=== PATIENT | female | born 1955 | race Caucasian/White ===

== ENCOUNTER 2017-09-22 14:13 | Emergency (ER) | payer BC ==
[2017-09-22 14:20] VITALS: BP 102/70; PULSE 70; TEMP 98; BMI 18.2
--- NOTE | 2017-09-22 14:28 | PDOC ---
History of Present Illness - General Chief Complaint: Injury Stated Complaint: FALL Time Seen by Provider: 09/22/17 14:28 History Source: Patient Exam Limitations: No Limitations - History of Present Illness Initial Comments: 09/22/17 15:47 62-year-old female who is right hand dominant presents to the emergency department complaining of pain to the right shoulder. Patient states she slipped and fell onto her right shoulder yesterday. Patient states she broke her fall on the outstretched of her right hand but denies head injuries, neck/ back pains, extremity numbness or tingling sensation. Pain is exacerbated on certain movements and alleviated at rest. Occurred: reports: yesterday Past History - Past Medical History Allergies/Adverse Reactions: Allergies Allergy/AdvReac Type Severity Reaction Status Date / Time No Known Allergies Allergy Verified 09/22/17 14:16 Home Medications: Ambulatory Orders NK [No Known Home Medication] 09/22/17 COPD: No - Suicide/Smoking/Psychosocial Hx Smoking History: Never smoked Have you smoked in the past 12 months: No Information on smoking cessation initiated: No Hx Alcohol Use: Yes (daily wine) Drug/Substance Use Hx: No Substance Use Type: None Review of Systems - Review of Systems Able to Perform ROS?: Yes Comments:: 09/22/17 14:58 CONSTITUTIONAL: Absent: fever, chills, diaphoresis, generalized weakness, malaise, loss of appetite HEENT: Absent: rhinorrhea, nasal congestion, throat pain, throat swelling, difficulty swallowing, mouth swelling, ear pain, eye pain, visual Changes CARDIOVASCULAR: Absent: chest pain, loss of consciousness, palpitations, irregular heart rate, peripheral edema RESPIRATORY: Absent: cough, shortness of breath, dyspnea with exertion, orthopnea, wheezing, stridor, hemoptysis GASTROINTESTINAL: Absent: abdominal pain, abdominal distension, nausea, vomiting, diarrhea, constipation, melena, hematochezia GENITOURINARY: Absent: dysuria, frequency, urgency, hesitancy, hematuria, flank pain, genital pain MUSCULOSKELETAL: Absent: myalgia, arthralgia, joint swelling SKIN: Absent: rash, itching, pallor Right shoulder +pain Is the patient limited Indonesian proficient: No *Physical Exam - Vital Signs Last Vital Signs Temp Pulse Resp BP Pulse Ox 98.0 F 70 18 102/70 100 09/22/17 14:18 09/22/17 14:18 09/22/17 14:18 09/22/17 14:18 09/22/17 14:18 - Physical Exam Comments: 09/22/17 14:58 GENERAL: Well developed, well nourished. Awake and alert. No acute distress. HEENT: Normocephalic, atraumatic. PERRLA, EOMI. No conjunctival pallor. Sclera are non- icteric. Moist mucous membranes. Oropharynx is clear. NECK: Supple. Full ROM. No JVD. Carotid pulses 2+ and symmetric, without bruits. No thyromegaly. No lymphadenopathy. CARDIOVASCULAR: Regular rate and rhythm. No murmurs, rubs, or gallops. Distal pulses are 2+ and symmetric. PULMONARY: No evidence of respiratory distress. Lungs clear to auscultation bilaterally. No wheezing, rales or rhonchi. ABDOMINAL: Soft. Non-tender. Non-distended. No rebound or guarding. No organomegaly. Normoactive bowel sounds. MUSCULOSKELETAL +Pain on palp Decreased R.O.M> neg obv deformities Right elbow F.R.O.M. neg pain on palp Neg obv deformities EXTREMITIES: No cyanosis. No clubbing. No edema. No calf tenderness. SKIN: Warm and dry. Normal capillary refill. No rashes. No jaundice. ED Treatment Course - RADIOLOGY Radiograph Interpretation: 09/22/17 14:57 Xray right shoulder: 4v transverse humeral fx *DC/Admit/Observation/Transfer Diagnosis at time of Disposition: Shoulder fracture, right Qualifiers: Encounter type: initial encounter Fracture type: closed Qualified Code(s): S42.91XA - Fracture of right shoulder girdle, part unspecified, initial encounter for closed fracture - Discharge Dispostion Disposition: HOME Condition at time of disposition: Stable Admit: No - Referrals Referrals: Timur Estes MD [Primary Care Provider] - Suhail Bhagat MD [Staff Physician] - - Patient Instructions Printed Discharge Instructions: DI for Shoulder Fracture Additional Instructions: Ice; 20 mins on alternating with 20 mins off for 48 hours while awake. Rest Elevate Follow up with your orthopedic surgeon or the one listed on the discharge form. Return to the ER for severe/persistent/worsening symptoms, extremity numbness/ tingling sensation. - Post Discharge Activity
[2017-09-22] MEDS ORDERED: KETOROLAC TROMETHAMINE 30 MG/1 ML VIAL ONE (15:31)
[2017-09-22] MEDS ORDERED: KETOROLAC TROMETHAMINE 30 MG/1 ML VIAL IM ONE (15:39)
== END 2017-09-22 15:40 | disposition home or self-care (01) ==
LOC: JERFT 14:13
PROC: 3E0233Z Introduction of Anti-inflammatory into Muscle, Percutaneous Approach (ICD-10-PCS; principal; 2017-09-22)
DX: S42.91XA Fracture of right shoulder girdle, part unspecified, initial encounter for closed fracture (principal); S42.294A Other nondisplaced fracture of upper end of right humerus, initial encounter for closed fracture; W01.0XXA Fall on same level from slipping, tripping and stumbling without subsequent striking against object, initial encounter; Y93.89 Activity, other specified; Y92.89 Other specified places as the place of occurrence of the external cause; Y99.8 Other external cause status
CPT/HCPCS: 73030-TC-RT-FY; 99281-25

== ENCOUNTER 2022-07-13 13:47 | Emergency (ER) | payer BC, OTHER ==
[2022-07-13 14:00] VITALS: RESP 18; TEMP 97.4; BMI 15.0
[2022-07-13 18:12] LABS: BASO % 0.6 % (0-2.0); EOS % 0.9 % (0-4.5); HEMATOCRIT 36.9 % (32.4-45.2); HEMOGLOBIN 12.3 GM/dL (10.7-15.3); LYMPH % 21.1 % (8-40); MCH 30.2 pg (25.7-33.7); MCHC 33.3 g/dl (32.0-36.0); MEAN CELL VOLUME 90.7 fl (80-96); MEAN PLT VOLUME 7.5 fl (7.5-11.1); MONO % 5.6 % (3.8-10.2); NEUT % 71.8 % (42.8-82.8); PLATELET COUNT 721 10^3/uL (134-434); RBC 4.07 M/mm3 (3.60-5.2); RDW 13.3 % (11.6-15.6); WHITE BLOOD COUNT 12.2 K/mm3 (4.0-10.0)
[2022-07-13 18:21] LABS: INR 1.02 (0.83-1.09); PROTHROMBIN TIME (PATIENT) 11.7 SEC (9.7-13.0)
[2022-07-13 18:24] LABS: ACTIVATED PTT 28.2 SECONDS (25.2-36.5)
[2022-07-13 18:37] LABS: CHLORIDE 101 mmol/L (98-107); SODIUM 140 mmol/L (136-145)
[2022-07-13 18:39] LABS: CALCIUM 9.2 mg/dL (8.5-10.1)
[2022-07-13 18:40] LABS: ALBUMIN 3.2 g/dl (3.4-5.0); BLOOD UREA NITROGEN 19.8 mg/dL (7-18); CO2 25 mmol/L (21-32); GLUCOSE,RANDOM 76 mg/dL (74-106); MAGNESIUM 2.3 mg/dL (1.8-2.4)
[2022-07-13 18:43] LABS: CREATININE 0.9 mg/dL (0.55-1.3); SGOT/AST 32 U/L (15-37); SGPT/ALT 40 U/L (13-61)
[2022-07-13 18:45] LABS: BILIRUBIN,TOTAL 0.3 mg/dL (0.2-1)
[2022-07-13 18:46] LABS: ALK PHOS 70 U/L (45-117)
[2022-07-13 18:49] LABS: ANION GAP 14 MMOL/L (8-16)
[2022-07-13] MEDS ORDERED: KCL 10 MEQ IVPB 10 MEQ/100 ML INFUS.BAG IVPB SCH (19:15)
[2022-07-13] MEDS ORDERED: POTASSIUM CHLORIDE ORAL LIQUID 20 MEQ/15 ML PO ONE (19:26)
[2022-07-13] MEDS ORDERED: POTASSIUM CHLORIDE ORAL LIQUID 20 MEQ/15 ML ONE (21:43)
[2022-07-13 22:01] VITALS: BP 121/74; PULSE 68
[2022-07-14 03:09] LABS: PHOSPHOROUS 4.2 mg/dL (2.5-4.9)
== END 2022-07-13 22:02 | disposition left against medical advice (07) ==
LOC: JER 13:47
DX: E87.6 Hypokalemia (principal); M79.602 Pain in left arm
CPT/HCPCS: 0241U-QW; 36415; 70450-TC; 71045-TC-FY; 73206-TC-RT; 80053; 83735; 84100; 84484; 85025; 85610; 85730; 86140; 93005; 93010; 93971; 99285-25; Q9967